=== PATIENT | female | born 1990 | race Caucasian/White ===

== ENCOUNTER 2018-03-04 17:21 | Observation (INO) ==
[2018-03-04] MEDS ORDERED: Sod Chloride 0.9% Inj 1,000 ML IV.SIG SCH (21:00)
--- NOTE | 2018-03-04 21:17 | ED ---
HPI General Chief complaint: Nausea/Vomiting/Diarrhea Stated complaint: crohn's flare up compliant Time Seen by Provider: 03/04/18 20:20 Source: patient Mode of arrival: ambulatory Limitations: no limitations History of Present Illness HPI Narrative: 27-year-old female 9 weeks gravid with a history of Crohn's disease, POTS, presents to the emergency department for evaluation of nausea, vomiting, diarrhea. She states the nausea and vomiting started 3 weeks ago but over the last 2 days she has had increased nausea and nonbloody vomiting and very little fluid intake. She states she has had 8 episodes of nonbloody diarrhea for the last 7 days as well. She denies fevers but states she has had a temperature of 100 degrees. She denies vaginal bleeding or discharge. Denies abdominal pain. Related Data Allergies Allergy/AdvReac Type Severity Reaction Status Date / Time amoxicillin Allergy Severe GASTRIC Unverified 03/04/18 17:35 PROBLEMS- clavulanic acid Allergy Severe GASTRIC Unverified 03/04/18 17:35 PROBLEMS- diatrizoate meglumine Allergy Severe DIFFICULTY Unverified 03/04/18 17:35 BREATHING/HIVES gadobenic acid Allergy Severe DIFFICULTY Unverified 03/04/18 17:35 BREATHING/HIVES gadodiamide Allergy Severe DIFFICULTY Unverified 03/04/18 17:35 BREATHING/HIVES gadoteridol Allergy Severe DIFFICULTY Unverified 03/04/18 17:35 BREATHING/HIVES iodine Allergy Severe throat Unverified 03/04/18 17:35 itching, hives, itching iodixanol Allergy Severe DIFFICULTY Unverified 03/04/18 17:35 BREATHING/HIVES iohexol Allergy Severe DIFFICULTY Unverified 03/04/18 17:35 BREATHING/HIVES meperidine Allergy Severe ITCHING/HIV Unverified 03/04/18 17:35 ES morphine Allergy Severe redness, Unverified 03/04/18 17:35 itching, vomiting potassium iodide Allergy Severe throat Unverified 03/04/18 17:35 itching, hives, itching povidone-iodine Allergy Severe throat Unverified 03/04/18 17:35 itching, hives, itching sodium iodide Allergy Severe throat Unverified 03/04/18 17:35 itching, hives, itching sodium iodide Allergy Severe throat Unverified 03/04/18 17:35 itching, hives, itching Review of Systems ROS: all other systems reviewed are negative PMFSH History History Provided By: Patient Medical History Medical History Acute Crohn's disease (Acute) GERD (gastroesophageal reflux disease) (Acute) Hyperemesis gravidarum (Acute) Osteopenia (Acute) POTS (postural orthostatic tachycardia syndrome) (Acute) Social History Social History Second Hand Smoke Exposure: No Smoking Status: Never smoker How Often Do You Have a Drink Containing Alcohol: Never Recent Travel in [facility] within the Last 8 Weeks: No Recent Out of Country Travel within the Last 8 Weeks: No Exam Narrative Exam Narrative: GENERAL: WD, WN in NAD SKIN: Focused skin assessment warm/dry. HEAD: Atraumatic. Normocephalic. EYES: Pupils equal and round. No scleral icterus. No injection or drainage. ENT: No nasal bleeding or discharge. Mucous membranes pink and moist. No tonsillar hypertrophy or exudate. NECK: Trachea midline. No JVD. No meningismus. No lymphadenopathy CARDIOVASCULAR: Regular rate and rhythm. No murmur appreciated. RESPIRATORY: No accessory muscle use. Clear to auscultation. Breath sounds equal bilaterally. GASTROINTESTINAL: Abdomen soft, non-tender, nondistended. Hepatic and splenic margins not palpable. No CVAT. MUSCULOSKELETAL: No obvious deformities. No clubbing. No cyanosis. No edema. No tenderness to palpation of the calves. Sensation intact to bilateral lower extremities. NEUROLOGICAL: Awake and alert. No obvious cranial nerve deficits. Motor grossly within normal limits. Normal speech. PSYCHIATRIC: Appropriate mood and affect; insight and judgment normal. Course Initial Documented Vital Signs Temperature 98.1 F 03/04/18 17:33 Pulse Rate 72 03/04/18 17:33 Respiratory Rate 18 03/04/18 17:33 Blood Pressure 125/72 03/04/18 17:33 Pulse Oximetry 99 03/04/18 17:33 Last Documented Vital Signs Temperature 98.1 F 03/04/18 17:33 Pulse Rate 71 03/04/18 17:35 Respiratory Rate 16 03/04/18 17:35 Blood Pressure 125/72 03/04/18 17:33 Pulse Oximetry 98 03/04/18 17:35 Medical Decision Making HARVEY Attestation HARVEY supervised visit: Yes Attestation: I, Dr. Sands, have reviewed the advance practice practitioner's documentation and am in agreement, met with the patient face to face, made the diagnosis, and the medical decision making was done by me. *My assessment and Findings: Patient is a 27-year-old female with history of Crohn's disease, currently , who presents with nausea and vomiting. She received multiple antiemetics prior to arrival and has not had any vomiting while here. She was evaluated by Dr. Mai, her SIDE HEMMER while in the waiting room and placed several orders and recommended she be admitted. She has been admitted for further evaluation and management. MDM Narrative Medical decision making narrative: 27 old female presents to the emergency department for evaluation of nausea, vomiting, diarrhea. She states her symptoms have been worse over the last 48-72 [address] She states that Dr. Mai was present in the triage and evaluated this patient. I was notified that Dr. Mai also wrote her recommended labs and treatment. Initiated 1L NS. Zofran for nausea. My physical exam findings were essentially unremarkable. Patient is a 27-year- old female rather petite in no acute distress. Not actively vomiting upon my evaluation. No tenderness to palpation of the abdomen. No CVA tenderness. I spoke Dr. Mai prior to labs being resulted. She agreed to admitting the patient prior to resulting all the labs. Medical Screen Exam Complete: Yes Emergency Medical Condition: Yes Differential Diagnosis Differential Diagnosis: Hyperemesis gravidarum, nausea, vomiting, Crohn's disease, gastroenteritis Lab Data Result diagrams: 03/04/18 20:50 03/04/18 20:50 Lab Results 03/04/18 03/04/18 03/04/18 Range/Units 20:50 20:50 20:50 WBC 14.5 H (4.0-11.0) th/mm3 RBC 4.99 (4.00-5.30) mil/mm3 Hgb 15.6 H (11.6-15.3) gm/dL Hct 46.3 H (35.0-46.0) % MCV 92.8 (80.0-100.0) fL MCH 31.2 (27.0-34.0) pg MCHC 33.7 (32.0-36.0) % RDW 12.5 (11.6-17.2) % Plt Count 427 (150-450) th/mm3 MPV 7.9 (7.0-11.0) fL Neut % (Auto) 67.2 (16.0-70.0) % Lymph % (Auto) 22.5 (9.0-44.0) % [place] % (Auto) 6.4 (0.0-8.0) % Eos % (Auto) 3.6 (0.0-4.0) % Baso % (Auto) 0.3 (0.0-2.0) % Neut # (Auto) 9.7 H (1.8-7.7) th/mm3 Lymph # (Auto) 3.2 (1.0-4.8) th/mm3 [place] # (Auto) 0.9 (0.0-0.9) th/mm3 Eos # (Auto) 0.5 H (0.0-0.4) th/mm3 Baso # (Auto) 0.0 (0.0-0.2) th/mm3 WBC Differential . Differential Comment Auto diff final ESR 1 (0-20) mm/hr Magnesium Cancelled Free T4 Cancelled Urine Color (Yellw/Straw) Urine Clarity (Clear) Urine pH (5.0-8.5) Ur Specific [place] (1.002-1.035) Urine Protein (Neg-Trace) mg/dL Urine Glucose (UA) (Negative) mg/dL Urine Ketones (Negative) mg/dL Urine Occult Blood (Negative) Urine Nitrate (Negative) Urine Bilirubin (Negative) Urine Urobilinogen (Less than 2) mg/dL Ur Leukocyte Esterase (Negative) Urine RBC (0-3) /hpf Urine WBC (0-5) /hpf Ur Squamous Epith Cells (0-5) /hpf Urine Bacteria (None) /hpf Urine Mucus (Occasional) /lpf Micro UA Comment Ur Microscopic Review Urine Culture Comments Rubella Immunity Screen Cancelled Rubella Ab, Quant Cancelled 03/04/18 Range/Units 21:55 WBC (4.0-11.0) th/mm3 RBC (4.00-5.30) mil/mm3 Hgb (11.6-15.3) gm/dL Hct (35.0-46.0) % MCV (80.0-100.0) fL MCH (27.0-34.0) pg MCHC (32.0-36.0) % RDW (11.6-17.2) % Plt Count (150-450) th/mm3 MPV (7.0-11.0) fL Neut % (Auto) (16.0-70.0) % Lymph % (Auto) (9.0-44.0) % [place] % (Auto) (0.0-8.0) % Eos % (Auto) (0.0-4.0) % Baso % (Auto) (0.0-2.0) % Neut # (Auto) (1.8-7.7) th/mm3 Lymph # (Auto) (1.0-4.8) th/mm3 [place] # (Auto) (0.0-0.9) th/mm3 Eos # (Auto) (0.0-0.4) th/mm3 Baso # (Auto) (0.0-0.2) th/mm3 WBC Differential Differential Comment ESR (0-20) mm/hr Magnesium Free T4 Urine Color Yellow (Yellw/Straw) Urine Clarity Hazy H (Clear) Urine pH 6.0 (5.0-8.5) Ur Specific [place] 1.013 (1.002-1.035) Urine Protein Negative (Neg-Trace) mg/dL Urine Glucose (UA) Negative (Negative) mg/dL Urine Ketones 80 or greater H (Negative) mg/dL Urine Occult Blood Negative (Negative) Urine Nitrate Negative (Negative) Urine Bilirubin Negative (Negative) Urine Urobilinogen Less than 2 (Less than 2) mg/dL Ur Leukocyte Esterase Negative (Negative) Urine RBC Less than 1 (0-3) /hpf Urine WBC 1 (0-5) /hpf Ur Squamous Epith Cells 1 (0-5) /hpf Urine Bacteria Rare H (None) /hpf Urine Mucus Few H (Occasional) /lpf Micro UA Comment Culture not ind Ur Microscopic Review Not Reportable Urine Culture Comments Culture not ind Rubella Immunity Screen Rubella Ab, Quant Discharge Plan Discharge Disposition Patient Disposition: 30 Still Patient Discharge Condition Condition: Stable Discharge Details Diagnosis: Hyperemesis gravidarum Physicians Team ED Provider: Buffy Sands ED Midlevel Provider: Megan Gallegos Attending Provider: Debora Mai Status ED Status: Admitted Observation Patient
[2018-03-04 21:28] LABS: Baso % (Auto) 0.3 % (0.0-2.0); Eos # (Auto) 0.5 th/mm3 (0.0-0.4); Eos % (Auto) 3.6 % (0.0-4.0); Hematocrit 46.3 % (35.0-46.0); Hemoglobin 15.6 gm/dL (11.6-15.3); Lymph # (Auto) 3.2 th/mm3 (1.0-4.8); Lymph % (Auto) 22.5 % (9.0-44.0); Mean Corpuscular HGB Conc 33.7 % (32.0-36.0); Mean Corpuscular Hemoglobin 31.2 pg (27.0-34.0); Mean Corpuscular Volume 92.8 fL (80.0-100.0); Mean Platelet Volume 7.9 fL (7.0-11.0); Mono # (Auto) 0.9 th/mm3 (0.0-0.9); Mono % (Auto) 6.4 % (0.0-8.0); Neut # (Auto) 9.7 th/mm3 (1.8-7.7); Neut % (Auto) 67.2 % (16.0-70.0); Platelet Count 427 th/mm3 (150-450); Red Blood Count 4.99 mil/mm3 (4.00-5.30); Red Cell Distribution Width 12.5 % (11.6-17.2); White Blood Count 14.5 th/mm3 (4.0-11.0)
[2018-03-04 22:13] LABS: Bacteria,Urine Rare /hpf; Bilirubin,Urine Negative (Negative); Clarity,Urine Hazy (Clear); Color,Urine Yellow (Yellw/Straw); Glucose,Urine (UA) Negative (Negative); Leukocyte Esterase,Urine Negative (Negative); Mucus,Urine Few /lpf (Occasional); Nitrite,Urine Negative (Negative); Specific Gravity,Urine 1.013 (1.002-1.035); Squamous Epithelial Cell,Urine 1 /hpf (0-5)
[2018-03-04 22:17] LABS: Alanine Aminotransferase 19 U/L (10-53)
[2018-03-04 22:26] LABS: Alkaline Phosphatase 48 U/L (45-117); Free T4 (Free Thyroxine) 1.14 ng/dL (0.76-1.46); Total Protein 8.2 g/dL (6.4-8.2)
[2018-03-04 22:28] LABS: Albumin 4.3 g/dL (3.4-5.0); Anion Gap 8 meq/L (5-15); Aspartate Aminotransferase 20 U/L (15-37); Blood Urea Nitrogen 6 mg/dL (7-18); Calcium 9.3 mg/dL (8.5-10.1); Carbon Dioxide 26.1 meq/L (21.0-32.0); Chloride 100 meq/L (98-107); Glomerular Filtration Rate Greater Than 89 mL/min (>89); Glucose,Random 69 mg/dL (74-106); Potassium 3.5 meq/L (3.5-5.1); Sodium 134 meq/L (136-145)
[2018-03-04 22:39] LABS: Rubella IgG Antibody 336.3 IU/mL (10.0-500.0)
[2018-03-04 23:10] LABS: Hepatitis A IgM Antibody Nonreactive (Nonreactive)
[2018-03-04 23:11] LABS: Hepatitits B Surface Antigen Nonreactive (Nonreactive)
[2018-03-05] MEDS ORDERED: Sodium Chloride 0.9% 2 ML Flush PRN IV.FLUSH (00:05)
[2018-03-05] MEDS ORDERED: Famotidine PF Inj 20 MG/2 ML Vial IV.PUSH SCH (01:00)
--- NOTE | 2018-03-05 08:29 | P.HPOB ---
History of Present Illness Service: Gynecology Primary Care Physician: Carlos Montanez Chief Complaint: 9 weeks with active crohns disease. diarrhea, vomiting and dehydr History of Present Illness: 27 yo swf at 9 weeks EGA, seen once in office for her new ob visit, called office yesterday stating that Dr. Vora and her PCP wanted me to admit her directly due to several days of profound diarrhea, nausea, vomiting and no oral intake for two days. She had been given zofran in her PCP office prior to leaving. I could not see her in the office and sent her to the ED, where I met her last night. Confirmed dehydration and diarrhea (last episode 4:30 pm yesterday) Currently in GPod Received IV hydration, zofran, zantac and reglan through night and feeling much better this am. Have consulted Dr. Vora and believe course of steroids in order. No diarrhea since admission. Would like to try some food. No cramping or spotting. Weeks Gestation:: 9 Review of Systems Constitutional: Reports anorexia, Reports fatigue, Reports lack of energy, Reports malaise, Reports weakness, Reports weight loss Ears, Nose, Mouth, and Throat: Reports dry mouth Gastrointestinal: Reports abdominal pain, Reports change in bowel habits, Reports loose stools, Reports nausea Psychiatric: Reports anxiety, Reports depression PMFSH - History History Provided By: Patient - Medical History Medical History: Medical History (Last Reviewed 03/04/18 @ 21:20 by MELANY Nick) Acute Crohn's disease GERD (gastroesophageal reflux disease) Hyperemesis gravidarum Osteopenia POTS (postural orthostatic tachycardia syndrome) - Tobacco History Second Hand Smoke Exposure: Yes Tobacco Use In Past 30 Days: No Smoking Status: Never smoker - Alcohol History How Often Do You Have a Drink Containing Alcohol: Never - Substance Use History Substance History: No History of Abuse - Travel History History of Recent Travel: No Recent Travel in the [place] Within the Last 8 Weeks: No Recent Travel Out of the Country Within the Last 8 Weeks: No - Immunization History Tetanus Immunization: Unsure Hx Influenza Vaccine This Season: No Medications and Allergies Active Medications: Active Medications Famotidine (Pepcid Pf Inj) 20 mg IV.PUSH Q12H SUSHIL Last Admin: 03/05/18 01:51 Dose: 20 mg Lactated Ringer's (Lr 1000 Ml Inj) 1,000 mls @ 125 mls/hr IV.SIG .Q8H SUSHIL Last Admin: 03/05/18 00:06 Dose: 125 mls/hr Metoclopramide HCl (Reglan Inj) 10 mg IV.PUSH Q8H SUSHIL Stop: 03/05/18 18:01 Last Admin: 03/05/18 01:52 Dose: 10 mg Ondansetron HCl (Zofran Inj) 4 mg IV.PUSH Q6HR SUSHIL Stop: 03/05/18 12:01 Last Admin: 03/05/18 06:02 Dose: 4 mg Ondansetron HCl (Zofran Inj) 4 mg IV.PUSH Q6H PRN PRN Reason: NAUSEA OR VOMITING Sodium Chloride (Ns Flush) 2 ml IV.FLUSH BID SUSHIL Sodium Chloride (Ns Flush) 2 ml IV.FLUSH PRN PRN PRN Reason: FLUSH AFTER USING IV ACCESS Allergies Allergy/AdvReac Type Severity Reaction Status Date / Time amoxicillin Allergy Severe GASTRIC Unverified 03/04/18 17:35 PROBLEMS- clavulanic acid Allergy Severe GASTRIC Unverified 03/04/18 17:35 PROBLEMS- diatrizoate meglumine Allergy Severe DIFFICULTY Unverified 03/04/18 17:35 BREATHING/HIVES gadobenic acid Allergy Severe DIFFICULTY Unverified 03/04/18 17:35 BREATHING/HIVES gadodiamide Allergy Severe DIFFICULTY Unverified 03/04/18 17:35 BREATHING/HIVES gadoteridol Allergy Severe DIFFICULTY Unverified 03/04/18 17:35 BREATHING/HIVES iodine Allergy Severe throat Unverified 03/04/18 17:35 itching, hives, itching iodixanol Allergy Severe DIFFICULTY Unverified 03/04/18 17:35 BREATHING/HIVES iohexol Allergy Severe DIFFICULTY Unverified 03/04/18 17:35 BREATHING/HIVES meperidine Allergy Severe ITCHING/HIV Unverified 03/04/18 17:35 ES morphine Allergy Severe redness, Unverified 03/04/18 17:35 itching, vomiting potassium iodide Allergy Severe throat Unverified 03/04/18 17:35 itching, hives, itching povidone-iodine Allergy Severe throat Unverified 03/04/18 17:35 itching, hives, itching sodium iodide Allergy Severe throat Unverified 03/04/18 17:35 itching, hives, itching sodium iodide Allergy Severe throat Unverified 03/04/18 17:35 itching, hives, itching Home Medications Medication Instructions Recorded Confirmed Type No Known Home Medications 03/04/18 03/04/18 History Exam Vital signs: Vital Signs 03/04/18 17:33 03/04/18 17:35 03/04/18 23:05 Temperature 98.1 F Pulse Rate 72 71 Respiratory Rate 18 16 16 Blood Pressure 125/72 Pulse Oximetry 99 98 03/05/18 00:00 03/05/18 04:00 03/05/18 06:00 Temperature 99.2 F 98.7 F Pulse Rate 78 62 Respiratory Rate 14 14 Blood Pressure 95/56 L 84/52 L 87/51 L Pulse Oximetry 99 96 03/05/18 07:46 Temperature 98.7 F Pulse Rate 62 Respiratory Rate 22 Blood Pressure 96/46 L Pulse Oximetry 98 Intake & Output 03/04/18 03/05/18 03/05/18 18:59 06:59 18:59 Intake Total 1000 / 1000 Balance 1000 / 1000 Weight 35.38 kg 32 kg Intake: IV 1000 / 1000 NS Inj 1,000 ML @ 1000 mls/hr 1000 / 1000 IV[facility] Rx#:[id number] Other: Date of Last Bowel Movement 03/04/18 Weight On Admission 32 kg - Constitutional moderate distress - Routine HEENT Exam Head: Present: normocephalic, atraumatic Eye: Present: PERRL, normal accommodation ENT: Present: mucous membranes dry - Routine Neck Exam Present: supple - Routine Chest/Breast/Axilla Exam Breast: Present: tenderness - Routine Respiratory Exam Present: CTA bilaterally - Routine Cardiovascular Exam Present: RRR - Routine Abdominal Exam Present: soft, normoactive bowel sounds - Routine Skin Exam Present: intact - Routine Neurological Exam Present: alert, oriented X3 Results - Labs CBC & Chem 7: 03/04/18 20:50 03/04/18 20:50 Labs: Laboratory Results - last 24 hr 03/04/18 03/04/18 03/04/18 20:50 20:50 20:50 WBC 14.5 H RBC 4.99 Hgb 15.6 H Hct 46.3 H MCV 92.8 MCH 31.2 MCHC 33.7 RDW 12.5 Plt Count 427 MPV 7.9 Neut % (Auto) 67.2 Lymph % (Auto) 22.5 [place] % (Auto) 6.4 Eos % (Auto) 3.6 Baso % (Auto) 0.3 Neut # (Auto) 9.7 H Lymph # (Auto) 3.2 [place] # (Auto) 0.9 Eos # (Auto) 0.5 H Baso # (Auto) 0.0 WBC Differential . Differential Comment Auto diff final ESR 1 Sodium 134 L Potassium 3.5 Chloride 100 Carbon Dioxide 26.1 Anion Gap 8 BUN 6 L Creatinine 0.60 Estimated GFR Greater than 89 Random Glucose 69 L Calcium 9.3 Magnesium 2.0 Total Bilirubin 0.7 AST 20 ALT 19 Alkaline Phosphatase 48 Total Protein 8.2 Albumin 4.3 TSH 1.920 Free T4 1.14 Urine Color Urine Clarity Urine pH Ur Specific [place] Urine Protein Urine Glucose (UA) Urine Ketones Urine Occult Blood Urine Nitrate Urine Bilirubin Urine Urobilinogen Ur Leukocyte Esterase Urine RBC Urine WBC Ur Squamous Epith Cells Urine Bacteria Urine Mucus Micro UA Comment Ur Microscopic Review Urine Culture Comments Hepatitis A IgM Ab Hep Bs Antigen Hep B Core IgM Ab Hep C IgG Ab Rubella Immunity Screen Rubella Ab, Quant 03/04/18 03/04/18 03/04/18 20:50 20:50 20:50 WBC RBC Hgb Hct MCV MCH MCHC RDW Plt Count MPV Neut % (Auto) Lymph % (Auto) [place] % (Auto) Eos % (Auto) Baso % (Auto) Neut # (Auto) Lymph # (Auto) [place] # (Auto) Eos # (Auto) Baso # (Auto) WBC Differential Differential Comment ESR Sodium Potassium Chloride Carbon Dioxide Anion Gap BUN Creatinine Estimated GFR Random Glucose Calcium Magnesium Cancelled Total Bilirubin AST ALT Alkaline Phosphatase Total Protein Albumin TSH Free T4 Cancelled Urine Color Urine Clarity Urine pH Ur Specific [place] Urine Protein Urine Glucose (UA) Urine Ketones Urine Occult Blood Urine Nitrate Urine Bilirubin Urine Urobilinogen Ur Leukocyte Esterase Urine RBC Urine WBC Ur Squamous Epith Cells Urine Bacteria Urine Mucus Micro UA Comment Ur Microscopic Review Urine Culture Comments Hepatitis A IgM Ab Nonreactive Hep Bs Antigen Nonreactive Hep B Core IgM Ab Nonreactive Hep C IgG Ab Nonreactive Rubella Immunity Screen Cancelled Immune Rubella Ab, Quant Cancelled 336.3 03/04/18 21:55 WBC RBC Hgb Hct MCV MCH MCHC RDW Plt Count MPV Neut % (Auto) Lymph % (Auto) [place] % (Auto) Eos % (Auto) Baso % (Auto) Neut # (Auto) Lymph # (Auto) [place] # (Auto) Eos # (Auto) Baso # (Auto) WBC Differential Differential Comment ESR Sodium Potassium Chloride Carbon Dioxide Anion Gap BUN Creatinine Estimated GFR Random Glucose Calcium Magnesium Total Bilirubin AST ALT Alkaline Phosphatase Total Protein Albumin TSH Free T4 Urine Color Yellow Urine Clarity Hazy H Urine pH 6.0 Ur Specific [place] 1.013 Urine Protein Negative Urine Glucose (UA) Negative Urine Ketones 80 or greater H Urine Occult Blood Negative Urine Nitrate Negative Urine Bilirubin Negative Urine Urobilinogen Less than 2 Ur Leukocyte Esterase Negative Urine RBC Less than 1 Urine WBC 1 Ur Squamous Epith Cells 1 Urine Bacteria Rare H Urine Mucus Few H Micro UA Comment Culture not ind Ur Microscopic Review Not Reportable Urine Culture Comments Culture not ind Hepatitis A IgM Ab Hep Bs Antigen Hep B Core IgM Ab Hep C IgG Ab Rubella Immunity Screen Rubella Ab, Quant Caprini VTE Risk Assessment Caprini VTE Risk Assessment: No/Low Risk (score <= 1) Caprini Risk Assessment Model: Point Value = 1 Point Value = 2 Point Value = 3 Point Value = 5 Age 41-60 Minor surgery BMI > 25 kg/m2 Swollen legs Varicose veins or History of unexplained or recurrent spontaneous Oral contraceptives or hormone replacement Sepsis (< 1 month) Serious lung disease, including pneumonia (< 1 month) Abnormal pulmonary function Acute myocardial infarction Congestive heart failure (< 1 month) History of inflammatory bowel disease Medical patient at bed rest Age 61-74 Arthroscopic surgery Major open surgery (> 45 min) Laparoscopic surgery (> 45 min) Malignancy Confined to bed (> 72 hours) Immobilizing plaster cast Central venous access Age >= 75 History of VTE Family history of VTE Factor V Leiden Prothrombin [id number] Lupus anticoagulant Anticardiolipin antibodies Elevated serum homocysteine Heparin-induced thrombocytopenia Other congenital or acquired thrombophilia Stroke (< 1 month) Elective arthroplasty Hip, pelvis, or leg fracture Acute spinal cord injury (< 1 month) Prophylaxis Regimen: Total Risk Factor Score Risk Level Prophylaxis Regimen 0-1 Low Early ambulation 2 Moderate Order ONE of the following: *Sequential Compression Device (SCD) *Heparin 5000 units SQ BID 3-4 Higher Order ONE of the following medications: *Heparin 5000 units SQ TID *Enoxaparin/Lovenox 40 mg SQ daily (WT < 150 kg, CrCl > 30 mL/min) *Enoxaparin/Lovenox 30 mg SQ daily (WT < 150 kg, CrCl > 10-29 mL/min) *Enoxaparin/Lovenox 30 mg SQ BID (WT < 150 kg, CrCl > 30 mL/min) AND/OR *Sequential Compression Device (SCD) 5 or more Highest Order ONE of the following medications: *Heparin 5000 units SQ TID (Preferred with Epidurals) *Enoxaparin/Lovenox 40 mg SQ daily (WT < 150 kg, CrCl > 30 mL/min) *Enoxaparin/Lovenox 30 mg SQ daily (WT < 150 kg, CrCl > 10-29 mL/min) *Enoxaparin/Lovenox 30 mg SQ BID (WT < 150 kg, CrCl > 30 mL/min) AND *Sequential Compression Device (SCD) Assessment and Plan - Diagnosis (1) 9 weeks gestation of Code(s): Z3A.09 - 9 weeks gestation of Status: Acute (2) Crohn's disease Code(s): K50.90 - Crohn's disease, unspecified, without complications Status: Acute (3) Depression with anxiety Code(s): F41.8 - Other specified anxiety disorders Status: Acute (4) Osteopenia Code(s): M85.80 - Other specified disorders of bone density and structure, unspecified site Status: Acute - Plan Has already responded well to hydration. Labs as expected. labs drawn with this admission will have seen by Dr. Vora and determine if humira still appropriate, if another biologic considered safe and if steroids can be used for a time. will advance diet today. repeat cbc and serum acetone
[2018-03-05] MEDS: Sodium Chloride 0.9% 2 ML Flush BID IV.FLUSH SCH (09:41)
[2018-03-05] MEDS ORDERED: MethylPREDNISolone Sod Succinate Inj 40 MG/ML Vial IV.PUSH ONE (10:47)
[2018-03-05] MEDS: Metoclopramide 10 MG Tablet PO SCH ×2 (11:26→19:33)
[2018-03-05] MEDS: Famotidine 20 MG Tablet PO SCH (11:26)
[2018-03-05] MEDS: Sucralfate Liq 1 GM/10 ML UDC PO SCH ×3 (11:29→21:35)
[2018-03-05 11:40] LABS: Baso # (Auto) 0.1 th/mm3 (0.0-0.2); Baso % (Auto) 0.6 % (0.0-2.0); Eos # (Auto) 0.4 th/mm3 (0.0-0.4); Eos % (Auto) 3.8 % (0.0-4.0); Hematocrit 34.1 % (35.0-46.0); Hemoglobin 12.9 gm/dL (11.6-15.3); Lymph # (Auto) 2.2 th/mm3 (1.0-4.8); Mean Corpuscular Hemoglobin 34.3 pg (27.0-34.0); Mean Corpuscular Volume 91.1 fL (80.0-100.0); Mean Platelet Volume 7.6 fL (7.0-11.0); Mono # (Auto) 0.7 th/mm3 (0.0-0.9); Mono % (Auto) 6.9 % (0.0-8.0); Neut # (Auto) 6.7 th/mm3 (1.8-7.7); Neut % (Auto) 66.7 % (16.0-70.0); Platelet Count 308 th/mm3 (150-450); Red Blood Count 3.75 mil/mm3 (4.00-5.30); Red Cell Distribution Width 12.4 % (11.6-17.2)
[2018-03-05 11:42] LABS: Mean Corpuscular HGB Conc 37.7 % (32.0-36.0)
--- NOTE | 2018-03-05 11:42 | MB ---
cc: Rico Dillard MD,Debora Vora,Fernandez Juarez MD DATE: 03/05/2018 REASON FOR CONSULTATION: We were asked to see the patient at the request of Dr. Mai for evaluation of Crohn's. HISTORY OF PRESENT ILLNESS: The patient is a pleasant 27-year-old white female who is currently 9 weeks with her first child. She has had Crohn's for a number of years. She intermittently has been seen in our office, but recently she has been seen in [place], and she recently moved back to this area. Looking through our records, there is colonoscopy in 2010 which was reportedly normal; but biopsies of the colon showed evidence of Crohn's. She says a doctor in [place] told her she had Crohn's of the terminal ileum; and this past summer, a colonoscopy was done which revealed no active Crohn's. She has been on Humira and doing well. Once she found out there was no active disease, she started to get . When her Crohn's acts up, it does present as nausea and vomiting. This time, she had nausea and vomiting also; and she was not quite sure whether it was the or the Crohn's. However, she started having copious amount of mucous-like and loose to watery stools without blood. There has been no recent travel history, intake of unusual foods, or any well water intake. She has not been on any antibiotics recently. She is not exposed to anyone who is ill. She does have some nausea and vomiting, but there is no blood in the vomit and no blood in the stools. No major cramping per se. PAST MEDICAL HISTORY: Significant for Crohn's, intermittent GERD, osteopenia. She has a postural orthostatic tachycardia syndrome. She has had history of hyperemesis gravidum. Irritable bowel syndrome, gastritis, esophagitis, depression, asthma, anxiety. PAST SURGICAL HISTORY: Appendectomy, possibly some sternoclavicular surgery. There is some possibility of a bowel surgery, but the details are not clear. SOCIAL HISTORY: Does not smoke, does not drink. ALLERGIES: AMOXICILLIN, CALVARIC ACID (AUGMENTIN), DIATRIZOATE MEGLUMINE. SHE IS ALSO ALLERGIC TO MEPERIDINE, IODINE, AMOXICILLIN, GADOBENIC ACID, MORPHINE. FAMILY HISTORY: Significant for father has liver disease. Mother had colon polyps. No onset IBD. REVIEW OF SYSTEMS: CONSTITUTIONAL: Intermittent weight loss. No fever or chills. CARDIOPULMONARY: No chest pain, palpitation, shortness of breath. GASTROINTESTINAL: Please see above. Otherwise unremarkable 12-point review of systems. MEDICATIONS: As an outpatient according to our chart in the office includes Apriso, Humira, Klonopin, Levsin, Reglan as needed, midodrine, Mononessa, promethazine, Protonix, Prozac, and Zofran. Medications in the hospital include Pepcid, Reglan, Zofran, Carafate. PHYSICAL EXAMINATION: VITAL SIGNS: Blood pressure is 96/46, pulse of 60, respiratory rate 22, temperature 98.7. GENERAL: She is a thin, but not emaciated white female who appears to be in no acute GI distress right now. HEENT: Her pupils equal, and reactive to light. No obvious scleral icterus. Oropharyngeal cavity had dental caries. No tongue deviation or candidal lesion. Hearing intact. NECK: Supple. No thyromegaly, lymphadenopathy. LUNGS: Clear to auscultation and percussion. HEART: Regular rate and rhythm. No gross murmurs are heard. ABDOMEN: Soft. There are no organ masses. No ascites or hernias. It is nondistended, nontender. Bowel sounds are positive in all 4 quadrants. EXTREMITIES: No cyanosis, clubbing, or edema. NEUROLOGIC: Her cranial nerves 2-12 grossly intact. No gross sensory deficits. She is alert and oriented x 3. RECTAL: Not done. SKIN: Warm and moist. LABORATORY DATA: Revealed white blood count 14,500, hemoglobin 15.6, hematocrit 46.3, MCV 92.8, platelet count 427,000. Sedimentation rate was 1. Sodium 134, BUN 6, creatinine 0.60. SGOT 20, SGPT of 19, alkaline phosphatase of 48, total protein 8.2, albumin 4.3. Her acute hepatitis panel was negative. HIV is negative. IMPRESSION: 1. Diarrhea with nausea and vomiting - she understands the nausea and vomiting could be related to her itself; but she says that when her Crohn's acts up, that is how it also presents. The diarrhea is probably to Crohn's, but cannot rule out Clostridium difficile. 2. Crohn disease - exact location is unclear. She says terminal ileum; but as mentioned above, her recent colonoscopy per patient did not show any terminal disease. There is also a CT enterography from 2015 in the chart that was also unremarkable. I do have a record of a normal colonoscopy in 2010, but biopsies of the colon did reveal Crohn's. Nevertheless, she has been diagnosed with Crohn's and we will try to get old records to find out how much disease is involved. She understands I believe the Crohn's is active and we need to get this under control. She has been on Apriso and Humira and obviously she has flared on these medications. 3. at 9 weeks. RECOMMENDATIONS: 1. Please check CRP and stool for Clostridium difficile. 2. I attempted to order a fecal calprotectin, but it was not available at this institution. 3. She understands I need to start her on steroids. We talked about the steroid side effects in general and also in women. The chances of cleft palate are very minimal, but current protocol is to start steroids. We will start Solu-Medrol on her at low dosage and see how she does. 4. Dr. Johnson to see the patient tomorrow and make further recommendations. MD FLY Mccarthy/rs , 10:46 AM , 11:02 AM
[2018-03-06] MEDS: Metoclopramide 10 MG Tablet PO SCH ×2 (00:19→09:07)
[2018-03-06] MEDS: Famotidine 20 MG Tablet PO SCH ×2 (00:19→09:08)
[2018-03-06] MEDS: Sodium Chloride 0.9% 2 ML Flush BID IV.FLUSH SCH (00:19)
[2018-03-06 08:18] VITALS: BP 99/49; PULSE 67; RESP 16; TEMP 98.8; O2SAT 99
--- NOTE | 2018-03-06 08:35 | P.OBANTE ---
Subjective Interval History: feeling much better on meds that now include steroids. Tolerating food. No further diarrhea. C diff is negative. Labs now show hydration adequate.GI consult reviewed with Alysha and expectations discussed. Salt, daily hydration and calories all discussed. RTO for nuchal translucency on Dec ^ Follow up with GI as outpatient. Objective Vital Signs and I&O: Vital Signs 03/05/18 11:52 03/05/18 16:10 03/05/18 20:00 Temperature 98.9 F 98.5 F 98.4 F Pulse Rate 71 85 73 Respiratory Rate 20 20 16 Blood Pressure 101/49 L 108/54 L 97/53 L Pulse Oximetry 99 96 99 03/05/18 23:39 03/06/18 03:43 03/06/18 03:56 Temperature 98.5 F 98.5 F Pulse Rate 65 62 58 L Respiratory Rate 17 14 Blood Pressure 92/51 L 89/46 L Pulse Oximetry 98 98 03/06/18 08:00 Temperature 98.8 F Pulse Rate 67 Respiratory Rate 16 Blood Pressure 99/49 L Pulse Oximetry 99 Intake & Output 03/05/18 03/06/18 03/06/18 18:59 06:59 18:59 Intake Total 1999 1000 / 1000 Balance 1999 1000 / 1000 Intake: IV 1999 1000 / 1000 LR 1000 mL Inj 1,000 ML @ 125 1999 1000 / 1000 mls/hr IV.SIG .Q8H [facility] Rx#: [id number] Other: # Voids 2 Date of Last Bowel Movement 03/05/18 Lab and Micro Results: Laboratory Results - last 24 hr 03/04/18 03/05/18 03/05/18 20:50 11:11 11:20 WBC 10.0 RBC 3.75 L Hgb 12.9 D Hct 34.1 L MCV 91.1 MCH 34.3 H MCHC 37.7 H RDW 12.4 Plt Count 308 MPV 7.6 Prelim Diff (Auto) Slide review pending Neut % (Auto) 66.7 Lymph % (Auto) 22.0 [place] % (Auto) 6.9 Eos % (Auto) 3.8 Baso % (Auto) 0.6 Neut # (Auto) 6.7 Lymph # (Auto) 2.2 [place] # (Auto) 0.7 Eos # (Auto) 0.4 Baso # (Auto) 0.1 WBC Differential . Diff Scan Auto diff confirmed Differential Comment . C-Reactive Protein Less than 0.29 Stl C.difficile DNA Amp St C. diff Tox Epid 027 RPR Nonreactive 03/05/18 16:05 WBC RBC Hgb Hct MCV MCH MCHC RDW Plt Count MPV Prelim Diff (Auto) Neut % (Auto) Lymph % (Auto) [place] % (Auto) Eos % (Auto) Baso % (Auto) Neut # (Auto) Lymph # (Auto) [place] # (Auto) Eos # (Auto) Baso # (Auto) WBC Differential Diff Scan Differential Comment C-Reactive Protein Stl C.difficile DNA Amp Negative St C. diff Tox Epid 027 Negative RPR Microbiology 03/05/18 16:05 Stool for WBCs - Final Stool No WBC's seen 03/05/18 16:05 Stool Occult Blood (EUSEBIO) - Final Stool Hemoccult negative Physical Exam: GENERAL: Well-nourished, well-developed patient. CARDIOVASCULAR: Regular rate and rhythm without murmurs, gallops, or rubs. RESPIRATORY: Breath sounds equal bilaterally. No accessory muscle use. ABDOMEN/GI: Abdomen soft, non-tender. Fundus: [-] GENITOURINARY: External Genitalia: intact and normal in appearance Cervix: [-] Dilatation: [-] Effacement: [-] Station: [-] Presentation: [-] Membranes: [-] Uterine Contractions: [-] FHT's: Category: [-] Baseline: [-] Reactive: [-] Variability: [-] Decels: [-] EXTREMITIES: No cyanosis or edema, non-tender, without signs of DVT. Assessment and Plan - Diagnosis (1) 9 weeks gestation of Code(s): Z3A.09 - 9 weeks gestation of Status: Acute (2) Crohn's disease Code(s): K50.90 - Crohn's disease, unspecified, without complications Status: Acute (3) Depression with anxiety Code(s): F41.8 - Other specified anxiety disorders Status: Acute (4) Osteopenia Code(s): M85.80 - Other specified disorders of bone density and structure, unspecified site Status: Acute - Plan Has already responded well to hydration. Labs as expected. labs drawn with this admission will have seen by Dr. Vora and determine if humira still appropriate, if another biologic considered safe and if steroids can be used for a time. will advance diet today. repeat cbc and serum acetone
[2018-03-06] MEDS: Sucralfate Liq 1 GM/10 ML UDC PO SCH (09:07)
== END 2018-03-06 10:08 | disposition home or self-care (01) ==
LOC: NEPE 17:21 → NEDA 17:21 → NEPGCP 23:05
PROVIDERS: ADMIT Obstetrics & Gynecology; ATTEND Obstetrics & Gynecology